=== PATIENT | male | born 1995 | race Caucasian/White ===

== ENCOUNTER 2023-10-17 11:42 | Emergency (ER) | payer OTHER ==
[~2023-10-17] VITALS: Ht 175.3 cm; Wt 74.3 kg
[2023-10-17 12:10] LABS: BASO % 0.5 % (0.0-1.0); EOS # 0.4 10^3/uL (0.0-0.5); EOS % 4.4 % (0.0-3.0); HEMATOCRIT 43.9 % (42.0-52.0); HEMOGLOBIN 14.9 g/dl (13.5-17.5); LYMPH # 2.6 10^3/uL (1.5-5.0); MEAN CORPUSCULAR HEMOGLOBIN 29.5 pg (27.0-33.0); MEAN CORPUSCULAR HGB CONC 33.9 g/dl (32.0-36.5); MEAN CORPUSCULAR VOLUME 86.9 fl (80.0-96.0); MONO # 0.9 10^3/uL (0.0-0.8); MONO % 10.6 % (2.0-8.0); NEUTROPHILS # 4.4 10^3/uL (1.5-8.5); PLATELET COUNT, AUTOMATED 246 10^3/uL (150-450); RED BLOOD COUNT 5.05 10^6/uL (4.30-6.10); WHITE BLOOD COUNT 8.4 10^3/uL (4.0-10.0)
[2023-10-17] MEDS: ONDANSETRON 4MG 2ML VIAL IV ONE (12:12)
[2023-10-17] MEDS: KETOROLAC 30 MG/ML 1ML VIAL IV ONE (12:12)
[2023-10-17] MEDS: NS 1,000 ML IV ONE (12:12)
[2023-10-17 12:34] LABS: ALBUMIN 3.8 G/DL (3.2-5.2); BILIRUBIN,DIRECT 0.2 MG/DL (<0.4); BILIRUBIN,TOTAL 0.7 MG/DL (0.3-1.2)
[2023-10-17] MEDS: fentaNYL 100 MCG/2 ML INJECTION IV ONE (12:53)
[2023-10-17] MEDS: METOCLOPRAMIDE INJ 10MG/2ML VIAL IV ONE (12:54)
[2023-10-17] MEDS ORDERED: PERC5TAB12 PO (13:18)
[2023-10-17] MEDS ORDERED: ONDA4TAB6 PO (13:18)
[2023-10-17] MEDS ORDERED: FLOM0.4C39 PO (13:18)
[2023-10-17] MEDS ORDERED: KETO10TAB PO (13:18)
[2023-10-17] MEDS: TAMSULOSIN 0.4 MG CAP PO ONE (13:25)
[2023-10-17] MEDS: PROMETHAZINE 25MG/ML 1ML VIAL IV ONE (13:40)
[2023-10-17 14:49] VITALS: BP 115/62; TEMP 98.7; O2SAT 99
== END 2023-10-17 15:41 | disposition home or self-care (01) ==
LOC: M ED 11:42
DX: N20.1 Calculus of ureter (principal); Z88.0 Allergy status to penicillin
CPT/HCPCS: 74176; 80047; 80076; 81001; 83690; 85025; 96374; 96375; 99284; J1885; J2405; J2550; J2765; J3010